=== PATIENT | male | born 1950 | race Caucasian/White ===

== ENCOUNTER 2019-04-24 12:59 | Outpatient (CLI) | payer OTHER ==
--- NOTE | 2019-04-24 13:39 | ULT ---
THYROID ULTRASOUND: CLINICAL HISTORY: Thyroid Nodule COMPARISON:None FINDINGS: Right thyroid lobe: Measures 4.5 cm. Left thyroid lobe: Measures 4.3 cm. Isthmus: Measures 1.9 mm. Nodules: There are a few scattered 3 to 5 mm foci of altered echotexture, predominantly cystic-appea ring, although one contains central increased echogenicity with mild posterior shadowing which may relate to a punctate calcification.Very small size makes these of doubtful clinical significance. IMPRESSION: No suspicious, dominant thyroid nodules. Subcentimeter cystic nodules are present, as above,
== END 2019-04-24 13:00 | disposition home or self-care (01) ==
LOC: SCSULT 12:59
DX: Z01.89 Encounter for other specified special examinations (principal); E04.2 Nontoxic multinodular goiter
CPT/HCPCS: 76536